=== PATIENT | male | born 1995 | race Two or more races ===

== ENCOUNTER 2023-11-26 19:12 | Emergency (ER) | payer MEDICAID ==
[~2023-11-26] VITALS: Ht 170.2 cm; Wt 90.0 kg
[2023-11-26 19:18] VITALS: TEMP 98.7
[2023-11-26] MEDS: IBUPROFEN 600 MG TABLET PO ONE (20:54)
[2023-11-26] MEDS: DOXYCYCLINE HYCLATE 100 MG TABLET PO ONE (20:54)
[2023-11-26] MEDS ORDERED: IBUP-1492 PO (20:55)
[2023-11-26] MEDS ORDERED: DOXY-354 PO (20:55)
[2023-11-26 21:03] VITALS: BP 137/94
[2023-11-26 21:38] VITALS: PULSE 96; RESP 15
== END 2023-11-26 21:47 | disposition home or self-care (01) ==
LOC: EMS 19:12
DX: L02.511 Cutaneous abscess of right hand (principal)
CPT/HCPCS: 99283